=== PATIENT | female | born 1955 | race Caucasian/White ===

== ENCOUNTER 2022-01-22 10:13 | Emergency (ER) | payer MEDICARE, SELFPAY ==
--- NOTE | ~2022-01-22 | XR_ITS ---
XR chest 2V DATE: 01/22/2022 10:40 INDICATION: Cough, shortness of breath TECHNIQUE: 2 views COMPARISON: None FINDINGS: Heart size is within normal range. No hilar or mediastinal enlargement is evident. There is retrocardiac left lower lobe infiltrate and/atelectasis and to a lesser extent mild right ba silar atelectasis. IMPRESSION: Bilateral lower lung infiltrate or atelectasis, most prominent in the left lower lobe. Pn eumonia is not excluded. Reviewed, dictated and finalized at location B. [employer] IMPRESSION: Bilateral lower lung infiltrate or atelectasis, most prominent in t he left lower lobe. Pneumonia is not excluded.
--- NOTE | 2022-01-22 10:16 | ED.URI ---
HPI - URI/Sore Throat General Chief Complaint: Upper Respiratory Infection Stated Complaint: COUGH Time Seen by Provider: 01/22/22 10:16 Source: patient Mode of arrival: ambulatory Limitations: no limitations History of Present Illness HPI Narrative: Ms. Blankenship is a 66-year-old female patient presenting to the clinic today with complaints of a productive cough, sinus pressure, headaches, and sore throat. Reports that she tested positive for COVID last week and has had symptoms for about a week and half now and she feels as though her symptoms are worsening after taking Paxlo She reports she is having some light green phlegm come up when coughing. Thinks she may have pneumonia. MD elicited complaint: cough, sore throat, rhinorrhea, nasal congestion and sinus pain Related Data Home Medications Medication Instructions Recorded Confirmed albuterol sulfate 90 mcg/actuation 2 puff inhalation Q4H 01/22/22 01/22/22 aerosol inhaler metoprolol succinate 100 mg 100 mg PO DAILY 01/22/22 01/22/22 tablet,extended release 24 hr omeprazole 40 mg capsule,delayed 40 mg PO DAILY 01/22/22 01/22/22 release sertraline 100 mg tablet 100 mg PO DAILY 01/22/22 01/22/22 Allergies Allergy/AdvReac Type Severity Reaction Status Date / Time No Known Allergies Allergy Verified 01/22/22 10:27 Review of Systems Review of Systems: Pertinent positives per HPI. Patient denies any fever, chills, rash, headache, visual changes, dizziness, cough, shortness of breath, chest pain, palpitations, nausea, vomiting, diarrhea, constipation, abdominal pain, or any urinary issues. [facility] Comments At the time of my signature, I reviewed and agree with the nursing past medical, surgical, social, and family history. There is no relevant family history pertinent to the patient complaint. Exam Narrative: General: Well-developed, obese, in no apparent distress Head: Normocephalic, atraumatic Eyes: Pupils equally round and reactive to light bilaterally, EOM intact, sclera and conjunctive clear, no discharge, lids normal Ears: TMs intact and clear, ear canals clear, no drainage, grossly hearing normal. Nose: Nares patent, clear nasal discharge, moderate inflammation, left ethmoid and maxillary sinus tenderness. Mouth: Oral pharynx without lesions or masses, good dentition, MMM. Postnasal drip Neck: Supple, trachea midline, no enlargement of anterior or posterior cervical nodes, no thyroid masses or goiter palpable. Cardio: Regular rate and rhythm, s1 and s2 normal, no murmur appreciated. Resp: Diminished breath sounds in the lower bases, no rhonchi, rales, wheezing or rubs Course Course Emergency Course: Portions of this record may have been created with voice recognition software. Level of Care: Express Care Visit Vital Signs Vital signs: Vital Signs Temperature 37.1 C 01/22/22 10:29 Pulse Rate 94 01/22/22 10:29 Respiratory Rate 16 01/22/22 10:29 Blood Pressure 150/78 H 01/22/22 10:29 Pulse Oximetry 96 01/22/22 10:29 Oxygen Delivery Room Air 01/22/22 10:29 Temperature 37.1 C 01/22/22 10:29 Pulse Rate 94 01/22/22 10:29 Respiratory Rate 16 01/22/22 10:29 Blood Pressure 150/78 H 01/22/22 10:29 Pulse Oximetry 96 01/22/22 10:29 Oxygen Delivery Room Air 01/22/22 10:29 Vital signs reviewed MDM - URI/Sore Throat MDM Narrative Medical decision making narrative: At the time of visit patient is resting comfortably on the exam table. Chest x-ray was performed and shows probable bilateral infiltrates suggestive of pneumonia left greater than right. I suspect the patient also has ethmoid/maxillary sinusitis. Prescription for Augmentin and azithromycin was sent to the pharmacy as well as a prescription for some Mucinex. Patient declines needing a refill of her albuterol inhaler. Incentive spirometer was given and instructions on how to use were reviewed with the patient. Supportive measures were discusse
[2022-01-22 10:29] VITALS: BP 150/78; PULSE 94; RESP 16; TEMP 37.1; O2SAT 96
== END 2022-01-22 11:04 | disposition home or self-care (01) ==
PROVIDERS: Emergency Provider Nurse Practitioner Family
DX: U07.1 COVID-19 (principal); J18.9 Pneumonia, unspecified organism; J01.20 Acute ethmoidal sinusitis, unspecified; I10 Essential (primary) hypertension; K21.9 Gastro-esophageal reflux disease without esophagitis; F32.A Depression, unspecified
CPT/HCPCS: 71046; 99203; G0463

== ENCOUNTER 2024-01-15 16:29 | Emergency (ER) | payer MEDICARE, SELFPAY ==
--- NOTE | ~2024-01-15 | XR_ITS ---
XR foot RT min 3V Ordering provider: Yi Garrison APRN History: . pain lateral foot/heel, no injury . Comparison: None. FINDINGS: BONES: No acute fracture or dislocation. Calcaneus spur. Postoperative changes in the distal fibula. JOINT SPACES: Narrowing of the proximal and distal interphalangeal joints. No tarsal coalition. SOFT TISSUES: Normal. IMPRESSION: No acute osseous abnormality of the right foot. Reviewed, dictated and finalized at location A. [employer]
--- NOTE | 2024-01-15 16:40 | ED.LOWEXIN ---
HPI - Extremity Injury (Lower) General Chief Complaint: Extremity Injury, Lower Stated Complaint: right foot pain Time Seen by Provider: 01/15/24 16:45 Source: patient Mode of arrival: ambulatory Limitations: no limitations History of Present Illness HPI Narrative: 68 y/o female presented for c/o right foot pain today. She stepped wrong today and reports feeling a pop and now the pain radiates to the instep and heel. States the lateral aspect of the foot had been hurting x5 days. Pain is worse when applying any weight. Rates 8/10 at rest and says it is excruciating with weight bearing. Taking Tylenol and ibuprofen for pain. Denies numbness, tingling, weakness, bruising, or deformity. Related Data Home Medications Medication Instructions Recorded Confirmed albuterol sulfate 90 mcg/actuation 2 puff inhalation Q4H 01/22/22 01/22/22 aerosol inhaler metoprolol succinate 100 mg 100 mg PO DAILY 01/22/22 01/22/22 tablet,extended release 24 hr omeprazole 40 mg capsule,delayed 40 mg PO DAILY 01/22/22 01/22/22 release sertraline 100 mg tablet 100 mg PO DAILY 01/22/22 01/22/22 Allergies Allergy/AdvReac Type Severity Reaction Status Date / Time No Known Allergies Allergy Verified 01/15/24 16:50 Review of Systems Review of Systems: CONSTITUTIONAL: Denies body aches, fever, chills CARDIOVASCULAR: Denies chest pain, palpitations, or edema. RESPIRATORY: Denies cough or dyspnea. SKIN: Denies wounds. MUSCULOSKELETAL: Reports right foot pain NEUROLOGIC: Denies numbness, tingling, or weakness. All systems reviewed & are unremarkable except as noted in HPI and below [facility] Past Medical History Medical History (Updated 01/15/24 @ 17:18 by Yi Garrison APRN) Hypertension Comments At time of signature, I have reviewed and agree with nursing past medical, surgical, social and family history unless otherwise noted. Please see nursing chart for further information. There is no relevant family history pertinent to the presenting complaint Exam Narrative: GENERAL: Well-appearing CHEST: Speaks in full sentences. No respiratory distress. HEART: Regular rate and rhythm. Normal and equal peripheral pulses. EXTREMITIES: Right foot has normal strength and sensation, normal range of motion but endorses pain with dorsiflexion movement. No swelling or ecchymosis, No point tenderness. No open wounds, or obvious deformity; alignment normal, pulse palpable and equal bilaterally, skin warm, dry, pink. Capillary refill less than 3 seconds. SKIN: Warm, dry NEURO: Alert and oriented x3. PSYCH: Normal mood and affect Course Course Emergency Course: Patient is aware of diagnosis, understands and agrees to treatment plan. Anticipatory guidance given. Patient agrees to follow-up as directed and is aware of reasons to seek care at the emergency department. Portions of this record may have been created with voice recognition software Level of Care: Express Care Visit Vital Signs Vital signs: Vital Signs Oxygen Delivery Room Air 01/15/24 16:40 Temperature 98.1 F 01/15/24 16:43 Pulse Rate 79 01/15/24 16:43 Respiratory Rate 16 01/15/24 16:43 Blood Pressure 141/62 H 01/15/24 16:43 Pulse Oximetry 96 01/15/24 16:43 Oxygen Delivery Room Air 01/15/24 16:40 Reviewed MDM - Extremity Injury (Lower) MDM Narrative Medical decision making narrative: Discussed physical exam findings and right foot x-ray. BEN applied. Advised supportive measures and signs/symptoms to go to the ER. Pt is appropriate for outpt treatment and f/u. Differential Diagnosis Differential diagnosis: Likely other (Plantar fasciitis, heel spur, foot strain/sprain, metatarsal fracture, metatarsalgia, kan's neuroma) Discharge Plan Discharge Clinical Impression: Acute foot pain Patient Disposition: Home, Self-Care Condition: Stable Instructions: Foot Sprain (ED) Additional Instructions: Rest and elevate the right leg; bear weight as tolerated Apply ice 15-20 minute intervals several times a day Keep it wrapped with BEN as needed for support Motrin 800mg every 8 hours, alternate with Tylenol 1000mg every 8 hours as needed Follow up with your primary care provider and/or client solutions specialist within 1 week Go to the ER for worsening symptoms or concerns Prescriptions: New ibuprofen 800 mg tablet 800 mg PO TID PRN (Reason: pain) Qty: 15 0RF No Action metoprolol succinate 100 mg tablet extended release 24 hr 100 mg PO DAILY sertraline 100 mg tablet 100 mg PO DAILY omeprazole 40 mg capsule,delayed release(DR/EC) 40 mg PO DAILY albuterol sulfate 90 mcg/actuation HFA aerosol inhaler 2 puff INHALATION Q4H azithromycin 250 mg tablet See Rx Instructions .ROUTE .COMPLEX Qty: 6 0RF Rx Instructions: For 250 mg dose pack: take 500 mg today (day 1), then 250 mg for 4 days (days 2-5) amoxicillin-pot clavulanate 875-125 mg tablet 1 tablet PO Q12H 10 Days Qty: 20 0RF guaifenesin [Mucinex] 600 mg tablet extended release 12hr 600 mg PO Q12H PRN (Reason: cough) 10 Days Qty: 30 0RF Follow-up/Referrals: Parent,SANTOS Hidalgo [Primary Care Provider] - Time of Disposition: 17:21
[2024-01-15 16:43] VITALS: BP 141/62; PULSE 79; RESP 16; TEMP 36.7; O2SAT 96
--- NOTE | 2024-01-15 17:27 | PC.NURSE ---
+PMS POST BEN APPLICATION, RAD DISC PROVIDED TO PT
== END 2024-01-15 17:30 | disposition home or self-care (01) ==
PROVIDERS: Emergency Provider Nurse Practitioner Family; PCP Physician Assistant
DX: M79.671 Pain in right foot (principal); I10 Essential (primary) hypertension
CPT/HCPCS: 73630; 99213; G0463